=== PATIENT | male | born 1970 | race Caucasian/White ===

== ENCOUNTER 2020-05-02 19:49 | Emergency (ER) | payer OTHER, SELFPAY ==
[2020-05-02 20:10] VITALS: BP 167/96; PULSE 90; RESP 18; TEMP 37.3; O2SAT 95; BMI 31.3
--- NOTE | 2020-05-02 20:20 | PC.NURSE ---
Attempted to bring pt from the lobby,unable to find pt at this time
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
[2020-05-02 21:51] VITALS: BP 142/90; PULSE 89; O2SAT 97
[2020-05-02] MEDS: HYDROCODONE/ACET 5/325 PREPACK 1 BOTTLE MISC (22:06)
== END 2020-05-02 21:55 | disposition home or self-care (01) ==
PROVIDERS: Emergency Provider Emergency Medicine
DX: S00.83XA Contusion of other part of head, initial encounter (principal); W51.XXXA Accidental striking against or bumped into by another person, initial encounter
CPT/HCPCS: 70486; 99283; 99284